=== PATIENT | male | born 2005 | race Caucasian/White ===

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

== ENCOUNTER 2023-08-11 16:35 | Emergency (ER) | payer BC ==
[~2023-08-11] VITALS: Ht 198.1 cm; Wt 117.9 kg
[2023-08-11 16:35] VITALS: BP_SYST 125; PULSE 77; RESP 19; TEMP 98; O2SAT 97
[~2023-08-11 16:35] MED LIST: NAPR-690 PO
[2023-08-11] MEDS ORDERED: AUG875 PO (17:02)
[2023-08-11] MEDS ORDERED: MOME17SP15 NAS (17:02)
== END 2023-08-11 17:12 | disposition home or self-care (01) ==
LOC: SED 16:35
DX: J32.9 Chronic sinusitis, unspecified (principal)
CPT/HCPCS: 99283